=== PATIENT | female | born 1990 | race Caucasian/White ===

== ENCOUNTER 2020-03-15 06:00 | Inpatient (IN) ==
[2020-03-15] MEDS ORDERED: OXYTOCIN/DEXTROSE 5%-WATER 30 UNITS/500 ML BAG IV ONE ×2 (07:11→17:04)
[2020-03-15] MEDS ORDERED: ONDANSETRON 4 MG TAB.RAPDIS PO PRN (07:11)
[2020-03-15] MEDS ORDERED: DEXTROSE 5%-LACTATED RINGERS 1,000 ML IV PRN (07:11)
[2020-03-15] MEDS: RINGER'S SOLUTION,LACTATED 1,000 ML IV ONE ×3 (07:30→12:09)
--- NOTE | 2020-03-15 09:13 | HP ---
Chief Complaint - Chief Complaint Date of Service: 03/15/20 Time of Service: 09:07 Chief Complaint: elective induction of labor History of Present Illness: 29 yo at 39 5/7 weeks presents to L&D for elective induction of labor. This complicated by asthma - uncomplicated. Rh positive Rubella immune GBS negative Medical History (Last Reviewed 03/15/20 @ 09:09 by Blas Tineo DO) Thyromegaly (Chronic) Last TSH and U/S in 2015. Acne Currently 08/27/17 Endometriosis H/O cold sores HPV (human papilloma virus) infection Abnormal Pap smear of cervix 12/13/11-[facility] Asthma Mild intermittent Body piercing Tattoos Hemorrhoids 2002-Internal hemorrhoid Labor without complication (Resolved) Normal breast feeding (Resolved) Normal spontaneous vaginal delivery (Resolved) Surgical History: Surgical History (Last Reviewed 03/15/20 @ 09:09 by Blas Tineo DO) History of endoscopy 2002 [place] teeth extracted H/O colonoscopy 2002-Internal hemorrhoids History of colposcopy 01/25 Family History: Family History (Last Reviewed 03/15/20 @ 09:09 by Blas Tineo DO) Father Chronic bronchitis Grandfather No problems noted. Grandfather Heart disease Hypertension Diabetes Grandmother Hypothyroidism Grandmother Hypertension Mother Hypothyroidism Social History: (Last Reviewed 03/15/20 @ 09:09 by Blas Tineo DO) Social History: halfway: No Marital status: household members: children, spouse number of children: 3 current occupational status: employed current occupation: Registered Nurse [employer] Highest education level completed: Associate degree: academi Service: No Tobacco: Smoking Status: Never smoker second hand exposure: No Alcohol: alcohol intake: current alcohol intake frequency: holiday/special occasion details: No alcohol with . Substance Use: substance use type: does not use Dietary Habits: caffeine: Yes caffeine comment: 2/day Type: coffee Exercise: Physical activity functional status: normal ROM and activity frequency: other Maday/Uatsdin: agree to transfusion: Yes Review Of Systems (GEN) - Review of Systems Generalized/Overall Review: Present: No Symptoms Reported EENTM: Present: No Symptoms Reported Respiratory: Present: No Symptoms Reported Cardiac: Present: No Symptoms Reported Abdominal: Present: No Symptoms Reported Genitourinary: Present: No Symptoms Reported Musculoskeletal: Present: No Symptoms Reported Neurological: Present: No Symptoms Reported Skin: Present: No Symptoms Reported Endocrine: Present: No Symptoms Reported Allergies/Adverse Reactions: Allergies Allergy/AdvReac Type Severity Reaction Status Date / Time No Known Allergies Allergy Verified 03/15/20 06:28 Home Medications: HOME MEDICATIONS docusate sodium 100 mg capsule 100 mg PO BID 09/01/19 [Last Taken 03/13/20] prenat.vits,mario,[id number] 1 tab PO DAILY 09/01/19 [Last Taken 03/13/20] ascorbic acid (vitamin C) 500 mg tablet 500 mg PO DAILY 01/05/20 [Last Taken 03/13/20] ferrous sulfate 325 mg (65 mg iron) tablet,delayed release 325 mg PO DAILY 01/05/20 [Last Taken 03/13/20] Exam - Exam Vital Signs: Vital Signs - Last Taken Temp 36.4 C 03/15/20 06:30 Pulse 78 03/15/20 06:30 Resp 18 03/15/20 06:30 BP 112/69 03/15/20 06:30 Pulse Ox 99 03/15/20 06:30 Constitutional: Present: Alert, Oriented x3, Cooperative, No distress ENT Exam: Present: hearing grossly normal Neck: Present: non-tender Breasts: Present: Exam deferred Respiratory: Present: lungs clear, no respiratory distress Cardiovascular/Chest: Present: regular rate, rhythm, no edema Abdomen: Present: soft, nontender, no rebound tenderness, other - gravid /Rectal: Present: Other - cervix- 1-2/50/-3 Extremity: Present: non-tender, no pedal edema, no calf tenderness Skin Exam: Present: normal color, warm/dry, no cyanosis Lymphatic: Present: no adenopathy Neurologic: Present: alert, normal mood/affect, oriented x 3 Appearance: Present: appropriate appearance, appropriate insight Eye contact: Present: cooperative, good eye contact Thoughts: Present: normal thought pattern, normal mood /affect Assessment/Plan - Assessment/Plan (1) Encounter for elective induction of labor Assessment: admit for pitocin induction of labor. Epidural PRN. Problem: Acute (2) Asthma Problem: Acute Qualifiers: Asthma severity: mild Asthma persistence: intermittent Asthma complication type: uncomplicated Qualified Code(s): J45.20 - Mild intermittent asthma, uncomplicated (3) Anemia Problem: Acute Qualifiers: Iron deficiency anemia type: inadequate dietary iron intake
[2020-03-15] MEDS ORDERED: ONDANSETRON HCL/PF 2 MG/ML VIAL IV PRN (11:38)
[2020-03-15] MEDS ORDERED: NALOXONE HCL 1 MG/1 ML SYRG IV PRN (11:38)
[2020-03-15] MEDS ORDERED: BUPIVACAINE HCL/0.9 % NACL/PF 250 ML EP PRN (11:38)
--- NOTE | 2020-03-15 11:44 | ANES ---
Anesthesia Pre Procedure Eval Vitals/Labs: Last Vital Signs Temp 36.4 C 03/15/20 06:30 Pulse 78 03/15/20 06:30 Resp 18 03/15/20 06:30 BP 112/69 03/15/20 06:30 Pulse Ox 99 03/15/20 06:30 HOME MEDICATIONS docusate sodium 100 mg capsule 100 mg PO BID 09/01/19 [Last Taken 03/13/20] prenat.vits,mario,idr-xmih-iedve 1 tab PO DAILY 09/01/19 [Last Taken 03/13/20] ascorbic acid (vitamin C) 500 mg tablet 500 mg PO DAILY 01/05/20 [Last Taken 03/13/20] ferrous sulfate 325 mg (65 mg iron) tablet,delayed release 325 mg PO DAILY 01/05/20 [Last Taken 03/13/20] Allergies/Adverse Reactions: Allergies Allergy/AdvReac Type Severity Reaction Status Date / Time No Known Allergies Allergy Verified 03/15/20 06:28 - Planned Procedure Planned Procedure: Elective Induction 39w 5d Medication List Reviewed:: Yes Allergies Verified: Yes Medical History (Last Reviewed 03/15/20 @ 11:43 by Dariel Restrepo CRNA) Thyromegaly (Chronic) Last TSH and U/S in 2015. Acne Currently 08/27/17 Endometriosis H/O cold sores HPV (human papilloma virus) infection Abnormal Pap smear of cervix 12/13/11-[facility] Asthma Mild intermittent Body piercing Tattoos Hemorrhoids 2002-Internal hemorrhoid Labor without complication (Resolved) Normal breast feeding (Resolved) Normal spontaneous vaginal delivery (Resolved) Surgical History (Last Reviewed 03/15/20 @ 11:43 by Dariel Restrepo CRNA) History of endoscopy 2002 [place] teeth extracted H/O colonoscopy 2002-Internal hemorrhoids History of colposcopy 01/25 Family History (Last Reviewed 03/15/20 @ 11:43 by Dariel Restrepo CRNA) Father Chronic bronchitis Grandfather No problems noted. Grandfather Heart disease Hypertension Diabetes Grandmother Hypothyroidism Grandmother Hypertension Mother Hypothyroidism - Family Anesthesia History Family History:: no untoward family reactions to anesthesia, no familial bleeding tendencies, no family history of clotting disorders, no family history of premature - Airway/Neck/Teeth Within Normal Limits:: Yes Teeth Condition: intact Neck Exam: full range of motion Mallampatti Score: 2 Thyromental (T-M) distance: > 6 cm Mandibulo Hyoid distance: > 3 cm - Respiratory Respiratory Physical: lungs clear Smoking Status: Never smoker Sleep Apnea currently treated: No Sleep Apnea by current assessment: No - Cardiovascular Tolerate Activity: Fair Heart Sounds: S1 & S2, Regular - Anesthesia Assessment and Plan ASA Class: PS, II, E Anesthesia Type Plan: Epidural - Labor epidural for labor analgesia
[2020-03-15] MEDS ORDERED: fentaNYL CITRATE/PF 50 MCG/ML AMPUL IT SCH (11:45)
--- NOTE | 2020-03-15 12:04 | ANES ---
Anesthesia Procedure Note Procedure Note: ANESTHESIA PROCEDURE NOTE Date of Procedure: 03/15/2020 Time of procedure: 11:40 AM. Performed by: ANA Bailey CRNA, MSN Public Safety Dispatcher: William VANEGAS. Preprocedure diagnosis: Active labor, labor pain. Post procedure diagnosis: Same. Procedure:Epidural for labor analgesia L3-4. Indications: Requested analgesia for labor. Findings: See below. Details of the procedure: The patient was placed on the side of the bed in sitting positionand prepped with DuraPrep then draped in a sterile fashion. Lidocaine 1% was infiltrated to the skin and subcutaneous tissues at the level of the L3-4 interspace. An 18-gauge Touhy needle was used to approach the epidural space with loss of resistance technique. The epidural catheter was then threaded approximately 4 cm in the epidural space and the needle was removed. The catheter was taped in place and after careful aspiration 3 mL of 1 .5% lidocaine with 1-200,000 epinephrine was injected without change in maternal heart rate or sensorium. EBL: Minimal. Fluids: N/A. Specimen: N/A. Post procedure condition: The patient tolerated the procedure well with good relief. No complications were noted. Thank you for this consultation. Dariel Restrepo CRNA, ARNP, MSN
--- NOTE | 2020-03-15 12:05 | ANES ---
Post Anesthesia Discharge - Transfer of Care Transfer of Care handoff given to nurse: Yes - Discharge from PACU Discharge from PACU when meets criteria: Yes - Comfortable in 205.
--- NOTE | 2020-03-15 12:13 | ANES ---
Post Anesthesia Assessment - Vital Signs Vitals: Last Vital Signs Temp 36.4 C 03/15/20 06:30 Pulse 78 03/15/20 06:30 Resp 18 03/15/20 06:30 BP 112/69 03/15/20 06:30 Pulse Ox 99 03/15/20 06:30 Airway Patency: Normal - Mental Status Level Of Consciousness: Awake, Alert, Appropriate - Pain Level Pain Score: 0 - N/V Assessment Nausea/Vomiting Presence: None Dehydration:: No
--- NOTE | 2020-03-15 13:00 | PN ---
Progess Note - Interim Date: 03/15/20 Time: 12:58 Narrative: 03/15/20 12:58 Patient comfortable with epidural Vital signs stable. Pitocin at 6 mu/min. FHT: 130 baseline, reassuring contractions q 1-3 min with occasional couplets Cervix: 4/40/-2, AROM-clear Impression: Intrauterine at 39 5/7 weeks elective induction of labor. Plan: Continue present plan
--- NOTE | 2020-03-15 17:02 | OR ---
Operative Report - Dictated Report Narrative: Spontaneous vaginal delivery of vigorously crying viable male at 1621 on 03/15/2020 with Apgars 9 and 9, weighing 4088 g and DARA position with tight right foot cord x1 Cord clamping delayed approximately 1 minute Placenta delivered complete, intact, with three vessel cord Estimated blood loss: Less than 50 ml Anesthesia: Epidural Lacerations: None History for MU History for Definition: * The number of deliveries resulting in a live the patient experienced prior to current hospitalization * The previous delivery of live twins or any live multiple gestation is considered one live event. *If primagravida or nulliparous is documented select zero for the number of previous live births. Live Events: Live Events: 3
[2020-03-15] MEDS ORDERED: GLYCERIN/WITCH HAZEL LEAF 40 APPL BOX TP PRN (17:04)
[2020-03-15] MEDS ORDERED: SENNOSIDES 8.6 MG TABLET PO PRN (17:04)
[2020-03-15] MEDS ORDERED: BISACODYL 10 MG SUPP.RECT RC PRN (17:04)
[2020-03-15] MEDS ORDERED: HYDROCORTISONE 30 APPL TUBE TP PRN (17:04)
[2020-03-15] MEDS ORDERED: BENZOCAINE/MENTHOL 81 SPRAY CAN TP PRN (17:04)
[2020-03-15] MEDS ORDERED: IBUPROFEN 800 MG TABLET PO PRN (17:04)
[2020-03-15] MEDS ORDERED: oxyCODONE HCL/ACETAMINOPHEN 1 TAB TABLET PO PRN (17:04)
[2020-03-15] MEDS ORDERED: DOCUSATE SODIUM 100 MG CAPSULE PO SCH (21:00)
[2020-03-15] MEDS: DOCUSATE SODIUM 100 MG CAPSULE PO SCH (22:36)
[2020-03-15] MEDS: IBUPROFEN 800 MG TABLET PO PRN (22:45)
[2020-03-16] MEDS ORDERED: FERROUS SULFATE 325 MG TABLET PO SCH (09:00)
[2020-03-16] MEDS ORDERED: ASCORBIC ACID 500 MG TABLET PO SCH (09:00)
[2020-03-16] MEDS ORDERED: PRENATAL VITS96/IRON FUM/FOLIC 1 TAB TABLET PO SCH (09:00)
[2020-03-16] MEDS: DOCUSATE SODIUM 100 MG CAPSULE PO SCH (09:09)
[2020-03-16] MEDS: IBUPROFEN 800 MG TABLET PO PRN (15:06)
--- NOTE | 2020-03-16 16:00 | PN ---
Subjective - Date and Time Seen Date: 03/16/20 Time: 15:55 Objective - Vitals Vitals: Last Vital Signs Temp 36.4 C 03/16/20 07:32 Pulse 80 03/16/20 07:32 Resp 18 03/16/20 07:32 BP 104/62 03/16/20 07:32 Pulse Ox 99 03/16/20 07:32 Patient denies complaints. Patient breast-feeding. Lochia wnl abdomen - soft, nontender Uterus -firm, at umbilicus - 1 no calf tenderness Impression: day #1 - s/p spontaneous vaginal delivery. Patient desires early discharge. Plan: Continue routine care. Will discharge home tonight if baby's bilirubin and evaluation are normal. Routine discharge instructions given. Cauti Physician Documentation - Urinary Catheter Management Urethral (Kang) Date of Insertion: 03/15/20 Time of Insertion: 13:20 Date of Removal: 03/15/20 Time of Removal: 16:19 Assessment/Plan - Problems/Diagnosis (1) Encounter for elective induction of labor Problem: Acute (2) Asthma Problem: Acute Qualifiers: Asthma severity: mild Asthma persistence: intermittent Asthma complication type: uncomplicated Qualified Code(s): J45.20 - Mild intermittent asthma, uncomplicated (3) Anemia Problem: Acute Qualifiers: Iron deficiency anemia type: inadequate dietary iron intake
[2020-03-16 21:37] VITALS: BP 127/60
== END 2020-03-16 20:30 | disposition home or self-care (01) | DRG 807 ==
LOC: OB 06:10
PROVIDERS: ADMIT Obstetrics & Gynecology; ATTEND Obstetrics & Gynecology
CPT/HCPCS: 59025